=== PATIENT | female | born 1975 | race Two or more races ===

== ENCOUNTER 2022-07-12 13:08 | Emergency (ER) | payer OTHER ==
[~2022-07-12] VITALS: Ht 167.6 cm; Wt 81.6 kg
[~2022-07-12 13:08] MED LIST: NABUMETONE500 MG PO; NAPR500T14 PO; NAPROXEN SODIU550 MG PO; NORFLEX100MG PO; PERCOCET 5/3251 TAB PO; RELAFEN PO; SYNTHROID50 MCG PO
== END 2022-07-12 15:33 | disposition home or self-care (01) ==
LOC: ER 13:08
DX: R22.41 Localized swelling, mass and lump, right lower limb (principal); Z88.6 Allergy status to analgesic agent; Z88.8 Allergy status to other drugs, medicaments and biological substances; Z91.018 Allergy to other foods